=== PATIENT | female | born 1945 | race Caucasian/White ===

== ENCOUNTER 2021-06-13 12:06 | Emergency (ER) | payer MEDICARE ==
[~2021-06-13] VITALS: Ht 166.4 cm; Wt 63.6 kg
[2021-06-13 12:06] VITALS: BP 109/41
--- NOTE | 2021-06-13 13:10 | RAD ---
Site ID: [id number] EXAMINATION: XR HAND_RIGHT 3 VIEWS. HISTORY: 76 years Female Reason: fall, 4-5th metcarpal injury, fall onto walker today / COMPARISON: None. FINDINGS: There is an oblique minimally displaced fracture through the midshaft of the fifth metacarpal bone. T here is no subluxation or dislocation of the joints. There is a prominent osteoarthritis changes at t he DIP joints and at the carpometacarpal joints at the base of the thumb. There is also suggestion of generalized underlying osteopenia. IMPRESSION: Oblique minimally displaced fracture through the midshaft of the fifth metacarpal bone. Electronically signed by: Binu Dickens MD (06/13/2021 1:08 PM) [id number]
--- NOTE | 2021-06-13 13:21 | PHYS DOC ---
Past History Past Surgical History: No Surgical History Alcohol Use: None General Adult EDM: Chief Complaint: HAND PROBLEM HPI: HPI: Patient is a 76-year-old female coming in for pain to her right hand. Patient was trying to get up off her recliner and stumbled into a walker. Did not fall to the ground but hit her hand into the handle of the walker. Patient complaining of pain over right hand. Patient is right-handed. No other injuries. Review of Systems: Review of Systems: All other systems within normal limits except for as noted in the HPI Allergies: Allergies: Allergies Coded Allergies Type Severity Reaction Last Updated Verified metoclopramide Allergy Unknown 06/13/21 Yes oxybutynin Allergy Unknown 06/13/21 Yes Physical Exam: PE: Constitutional: Well developed, well nourished, no acute distress, non-toxic appearance. [] HENT: Normocephalic, atraumatic, bilateral external ears normal, nose normal. [] Eyes: PERRLA, conjunctiva normal, no discharge. [] Neck: No rigidity, supple, no stridor. [] Cardiovascular: Regular rate and rhythm, brisk cap refill [] Lungs & Thorax: Non labored symmetric respirations, no tachypnea or respiratory distress [] Abdomen: Soft, nondistended. Skin: Warm, dry, no erythema, no rash. [] Back: Unremarkable Extremities: No deformities, range of motion grossly intact, no lower extremity edema. Tenderness and swelling over mid fifth metatarsal on the dorsum of the hand. Neurovascular intact distal to injury Neurologic: Alert and oriented X 3, no focal deficits noted. [] Psychologic: Affect normal, judgement normal, mood normal. [] Current Patient Data: Vital Signs: Vital Signs Date Time Temp Pulse Resp B/P (MAP) Pulse Ox O2 Delivery O2 Flow Rate FiO2 06/13/21 12:06 98.3 69 109/41 (63) 97 Room Air EKG: EKG: [] Radiology/Procedures: Radiology/Procedures: [address] [address] IMAGING REPORT Signed PATIENT: VAUGHN AVALOS ACCOUNT: [id number] : 1945 LOCATION: ER AGE: 76 SEX: F EXAM STATUS: REG ER ORD. PHYSICIAN: BRITTNEY DONOHUE MD REASON: fall, 4-5th metcarpal injury, fall onto walker today PROCEDURE: HAND RIGHT 3V Site ID: [id number] EXAMINATION: XR HAND_RIGHT 3 VIEWS. HISTORY: 76 years Female Reason: fall, 4-5th metcarpal injury, fall onto walker today / COMPARISON: None. FINDINGS: There is an oblique minimally displaced fracture through the midshaft of the fifth metacarpal bone. There is no subluxation or dislocation of the joints. There is a prominent osteoarthritis changes at the DIP joints and at the carpometacarpal joints at the base of the thumb. There is also suggestion of generalized underlying osteopenia. IMPRESSION: Oblique minimally displaced fracture through the midshaft of the fifth metacarpal bone. Electronically signed by: Ranjit Dickens MD (06/13/2021 1:08 PM) [id number] DICTATED AND SIGNED BY: RANJIT DICKENS MD DATE: 06/13/21 1307 CC: BRITTNEY DONOHUE MD; REJI CALDERON MD ~MTH0 0 [] Heart Score: C/O Chest Pain: No Risk Factors: Risk Factors: DM, Current or recent (<one month) smoker, HTN, HLP, family history of CAD, obesity. Risk Scores: Score 0 - 3: 2.5% MACE over next 6 weeks - Discharge Home Score 4 - 6: 20.3% MACE over next 6 weeks - Admit for Clinical Observation Score 7 - 10: 72.7% MACE over next 6 weeks - Early Invasive Strategies Course & Med Decision Making: Course & Med Decision Making Pertinent Labs and Imaging studies reviewed. (See chart for details) Discussed with Dr. Farah who will follow patient in clinic [] Dragon Disclaimer: Dragon Disclaimer: This electronic medical record was generated, in whole or in part, using a voice recognition dictation system. Departure Departure: Impression: Primary Impression: Fracture of fifth metacarpal bone of right hand Disposition: HOME / SELF CARE / HOMELESS Condition: STABLE Referrals: REJI CALDERON MD (PCP) Patient Instructions: Hand Fracture, Fifth Metacarpal Additional Instructions: Call to schedule follow-up appointment with Ulisses Farah MD [facility] [address] [facility], [place] [id number] BRITTNEY DONOHUE MD Jun 13, 2021 13:21
== END 2021-06-13 14:10 | disposition home or self-care (01) ==
LOC: ER 12:06
DX: S62.326A Displaced fracture of shaft of fifth metacarpal bone, right hand, initial encounter for closed fracture (principal); W01.0XXA Fall on same level from slipping, tripping and stumbling without subsequent striking against object, initial encounter; Y93.01 Activity, walking, marching and hiking; Y92.89 Other specified places as the place of occurrence of the external cause; Y99.8 Other external cause status
CPT/HCPCS: 29125; 73130; 99283-25

== ENCOUNTER 2021-06-15 10:36 | Emergency (ER) | payer MEDICARE ==
[~2021-06-15] VITALS: Ht 162.6 cm; Wt 65.8 kg
--- NOTE | 2021-06-15 11:11 | PHYS DOC ---
Past History Past Surgical History: No Surgical History Alcohol Use: None General Adult EDM: Chief Complaint: URINARY RETENTION HPI: HPI: 76-year-old female presents with urinary retention. The patient performs intermittent urinary catheterization 5 times a day at baseline. She is right- handed and recently broke her right hand. She is unable to adequately catheter self. She is concerned about urinary retention and the potential for infection. She is amenable to Akbar catheter. She has no other complaints this time. Review of Systems: Review of Systems: Constitutional: Denies fever or chills Eyes: Denies change in visual acuity HENT: Denies nasal congestion or sore throat Respiratory: Denies cough or shortness of breath Cardiovascular: Denies chest pain or edema GI: Denies abdominal pain, nausea, vomiting, bloody stools or diarrhea : Urinary retention Musculoskeletal: Right hand fracture Integument: Denies rash Neurologic: Denies headache, focal weakness or sensory changes Endocrine: Denies polyuria or polydipsia Lymphatic: Denies swollen glands Psychiatric: Denies depression or anxiety Allergies: Allergies: Allergies Coded Allergies Type Severity Reaction Last Updated Verified metoclopramide Allergy Unknown 06/13/21 Yes oxybutynin Allergy Unknown 06/13/21 Yes Physical Exam: PE: Constitutional: Well developed, well nourished, no acute distress, non-toxic appearance. [] HENT: Normocephalic, atraumatic, bilateral external ears normal, oropharynx moist, no oral exudates, nose normal. [] Eyes: PERRLA, EOMI, conjunctiva normal, no discharge. [] Neck: Normal range of motion, no tenderness, supple, no stridor. [] Cardiovascular: Heart rate regular rhythm, no murmur [] Lungs & Thorax: Bilateral breath sounds clear to auscultation [] Abdomen: Bowel sounds normal, soft, no tenderness, no masses, no pulsatile masses. [] Skin: Warm, dry, no erythema, no rash. [] Back: No tenderness, no CVA tenderness. [] Extremities: Right hand with rigid splint and covered with Ray wrap. [] Neurologic: Alert and oriented X 3, normal motor function, normal sensory function, no focal deficits noted. [] Psychologic: Affect normal, judgement normal, mood normal. [] EKG: EKG: [] Radiology/Procedures: Radiology/Procedures: [] Heart Score: C/O Chest Pain: N/A Risk Factors: Risk Factors: DM, Current or recent (<one month) smoker, HTN, HLP, family histo ry of CAD, obesity. Risk Scores: Score 0 - 3: 2.5% MACE over next 6 weeks - Discharge Home Score 4 - 6: 20.3% MACE over next 6 weeks - Admit for Clinical Observation Score 7 - 10: 72.7% MACE over next 6 weeks - Early Invasive Strategies Course & Med Decision Making: Course & Med Decision Making Pertinent Labs and Imaging studies reviewed. (See chart for details) We will place a Akbar catheter for the patient. No other work-up is necessary at this time. She is stable for discharge. [] Dragon Disclaimer: Dragon Disclaimer: This electronic medical record was generated, in whole or in part, using a voice recognition dictation system. Departure Departure: Impression: Primary Impression: Urinary retention Disposition: HOME / SELF CARE / HOMELESS Condition: IMPROVED Referrals: REJI CALDERON MD (PCP) Patient Instructions: Akbar Catheter Care, Adult ELMIRAPILAR DO Jun 15, 2021 11:10
[2021-06-15 11:12] VITALS: BP 161/61
== END 2021-06-15 11:40 | disposition home or self-care (01) ==
LOC: ER 10:36
DX: R33.9 Retention of urine, unspecified (principal)
CPT/HCPCS: 51702; 99284-25

== ENCOUNTER 2021-08-26 12:44 | Observation (INO) | payer MEDICARE ==
[~2021-08-26] VITALS: Ht 165.1 cm; Wt 62.2 kg
--- NOTE | 2021-08-26 13:00 | PHYS DOC ---
Past History Past Surgical History: No Surgical History Alcohol Use: None General Adult EDM: Chief Complaint: MECHANICAL FALL HPI: HPI: 76-year-old female presents via EMS after 2 falls at home. Patient states that she has an undiagnosed movement disorder. Her physicians are trying to quantify it and come up with an official diagnosis. She tells me that she has mechanical falls frequently. She was seen in this emergency room recently with a fall. A fall 4 days ago led to the bruising on the right side of her face. Patient denies hitting her head today. She states she has pain in her right lateral hip. She did not try to get up after her second fall. She does not have any other specific complaints at this time. Review of Systems: Review of Systems: Constitutional: Denies fever or chills Eyes: Denies change in visual acuity HENT: Denies nasal congestion or sore throat Respiratory: Denies cough or shortness of breath Cardiovascular: Denies chest pain or edema GI: Denies abdominal pain, nausea, vomiting, bloody stools or diarrhea : Denies dysuria Musculoskeletal: Right hip pain Integument: Denies rash Neurologic: Denies headache, focal weakness or sensory changes Endocrine: Denies polyuria or polydipsia Lymphatic: Denies swollen glands Psychiatric: Denies depression or anxiety Allergies: Allergies: Allergies Coded Allergies Type Severity Reaction Last Updated Verified metoclopramide Allergy Unknown 06/13/21 Yes oxybutynin Allergy Unknown 06/13/21 Yes sulfamethoxazole Allergy Unknown 08/26/21 Yes trimethoprim Allergy Unknown 08/26/21 Yes Uncoded Allergies Type Severity Reaction Last Updated Verified CONTRAST DYE Allergy Unknown 08/26/21 Physical Exam: PE: Constitutional: Well developed, well nourished, no acute distress, non-toxic appearance. [] HENT: Normocephalic, atraumatic, bilateral external ears normal, oropharynx moist, no oral exudates, nose normal. [] Eyes: PERRLA, EOMI, conjunctiva normal, no discharge. [] Neck: Normal range of motion, no tenderness, supple, no stridor. [] Cardiovascular: Heart rate regular rhythm, no murmur [] Lungs & Thorax: Bilateral breath sounds clear to auscultation [] Abdomen: Bowel sounds normal, soft, no tenderness, no masses, no pulsatile masses. [] Skin: Warm, dry, no erythema, no rash. [] Back: No tenderness, no CVA tenderness. [] Extremities: Mild right hip tenderness, no crepitus or feeling of instability. [] Neurologic: Alert and oriented X 3, normal motor function, normal sensory function, no focal deficits noted. [] Psychologic: Affect normal, judgement normal, mood normal. [] EKG: EKG: [] Radiology/Procedures: Radiology/Procedures: [] Impressions: EXAM: XR CHEST 1V 08/26/2021 1:01 PM CLINICAL INDICATION: Fall COMPARISON: None TECHNIQUE: AP supine view of the chest FINDINGS: There are surgical changes of median sternotomy. There is lower cervical fusion hardware. Moderate hiatal hernia. The heart is at the upper limit of normal in size. Lungs are normally expanded. There is linear atelectasis or scarring in the right lung base. No consolidation, pleural effusion, or pneumothorax. No acute osseous abnormality. IMPRESSION: 1. No acute cardiopulmonary abnormality. 2. Moderate hiatal hernia. Electronically signed by: Natividad Sosa MD (08/26/2021 1:56 PM) [id number] DICTATED AND SIGNED BY: NATIVIDAD SOSA MD DATE: 08/26/21 1352 CC: PILAR KU DO; REJI CALDERON MD ~MTH0 0 XR BILATERAL HIP (WITH OR WITHOUT PELVIS) 2 VIEWS_RIGHT Clinical indications: Reason: fall /pain. Findings: There is cortical disruption of the lateral aspect of the greater trochanter of the proximal right femur. This may indicate a nondisplaced fracture here. No fracture is seen elsewhere involving the right femur or the the pelvic bones. Right hip dislocation is seen. No diastases of the symphysis pubis or either SI joint is seen. IMPRESSION: Possible nondisplaced fracture of the greater trochanter. If there is point tenderness in this area, then a CT study of the right hip may be helpful for further evaluation. Electronically signed by: Alexandre Zapata MD (08/26/2021 1:53 PM) [id number] DICTATED AND SIGNED BY: ALEXANDRE ZAPATA MD DATE: 08/26/21 1350 CC: PILAR KU DO; REJI CALDERON MD ~MTH0 0 Examination: CT pelvis without contrast HISTORY: History of right trochanteric fracture COMPARISON: None TECHNIQUE: Axial CT images of the bony pelvis were performed without contrast. Coronal and sagittal reformats are performed. Exposure: One or more of the following individualized dose reduction techniques were utilized for this examination: 1. Automated exposure control 2. Adjustment of the mA and/or kV according to patient size 3. Use of iterative reconstruction technique FINDINGS: The bilateral femoral heads within the acetabulum. Mild joint space loss bilateral hip joint likely degenerative changes. There is no acute fracture or dislocation identified. Urinary bladder is mildly distended. IMPRESSION: 1. No evidence of acute fracture. 2. Moderate degenerative changes bilateral hip joints. Electronically signed by: Jose Luis Daley MD (08/26/2021 3:00 PM) [id number] DICTATED AND SIGNED BY: JOSE LUIS DALEY MD DATE: 08/26/21 145 CC: PILAR KU DO; REJI CALDERON MD ~MTH0 0 Heart Score: C/O Chest Pain: N/A Risk Factors: Risk Factors: DM, Current or recent (<one month) smoker, HTN, HLP, family history of CAD, obesity. Risk Scores: Score 0 - 3: 2.5% MACE over next 6 weeks - Discharge Home Score 4 - 6: 20.3% MACE over next 6 weeks - Admit for Clinical Observation Score 7 - 10: 72.7% MACE over next 6 weeks - Early Invasive Strategies Course & Med Decision Making: Course & Med Decision Making Pertinent Labs and Imaging studies reviewed. (See chart for details) The patient's pelvis x-ray shows possible nondisplaced greater trochanteric fracture. CT of the pelvis shows no fracture. She does have some degenerative disease. See official read for more details. Patient's chest x-ray is negative for acute findings. Her labs are unremarkable. The patient's urinalysis is positive for infection. I will treat her with Rocephin and admit her to the hospital. I spoke with the patient's son and he is concerned that the patient is not herself. She is able to answer all of his questions but her pacing and demeanor seems off. She has had some recent psychiatric medication adjustments. I spoke with Dr. Shafer and he has accepted the patient for admission. [] Kylah Disclaimer: Kylah Disclaimer: This electronic medical record was generated, in whole or in part, using a voice recognition dictation system. Departure Departure: Impression: Primary Impression: UTI (urinary tract infection) Qualified Codes: N30.01 - Acute cystitis with hematuria Disposition: ADMITTED INPATIENT Admitting Physician: Watson Shafer Condition: STABLE Referrals: REJI CALDERON MD (PCP) PILAR KU DO Aug 26, 2021 13:00
[2021-08-26 13:49] LABS: BASO # 0.1 x10^3/uL (0.0-0.2); BASO % 1 % (0-3); EOS # 0.1 x10^3/uL (0.0-0.7); EOS % 1 % (0-3); HEMATOCRIT 32.2 % (36.0-47.0); HEMOGLOBIN 10.5 g/dL (12.0-15.5); LYMPH # 1.1 x10^3/uL (1.0-4.8); LYMPH % 13 % (24-48); MEAN CORPUSCULAR HEMOGLOBIN 32 pg (25-35); MEAN CORPUSCULAR HGB CONC 33 g/dL (31-37); MEAN CORPUSCULAR VOLUME 98 fL (79-100); MONO # 0.8 x10^3/uL (0.0-1.1); MONO % 10 % (0-9); NEUT # 6.3 x10^3uL (1.8-7.7); NEUT % 76 % (31-73); PLATELET COUNT 236 x10^3/uL (140-400); RED BLOOD COUNT 3.29 x10^6/uL (3.50-5.40); RED CELL DISTRIBUTION WIDTH 13.9 % (11.5-14.5); WHITE BLOOD COUNT 8.4 x10^3/uL (4.0-11.0)
--- NOTE | 2021-08-26 13:56 | RAD ---
XR BILATERAL HIP (WITH OR WITHOUT PELVIS) 2 VIEWS_RIGHT Clinical indications: Reason: fall /pain. Findings: There is cortical disruption of the lateral aspect of the greater trochanter of the proxim al right femur. This may indicate a nondisplaced fracture here. No fracture is seen elsewhere involvi ng the right femur or the the pelvic bones. Right hip dislocation is seen. No diastases of the symphy sis pubis or either SI joint is seen. IMPRESSION: Possible nondisplaced fracture of the greater trochanter. If there is point tenderness in this area, then a CT study of the right hip may be helpful for further evaluation. Electronically signed by: Norm Zapata MD (08/26/2021 1:53 PM) [id number]
--- NOTE | 2021-08-26 13:58 | RAD ---
EXAM: XR CHEST 1V 08/26/2021 1:01 PM CLINICAL INDICATION: Fall COMPARISON: None TECHNIQUE: AP supine view of the chest FINDINGS: There are surgical changes of median sternotomy. There is lower cervical fusion hardware. Moderate hiatal hernia. The heart is at the upper limit of normal in size. Lungs are normally expande d. There is linear atelectasis or scarring in the right lung base. No consolidation, pleural effusion , or pneumothorax. No acute osseous abnormality. IMPRESSION: 1. No acute cardiopulmonary abnormality. 2. Moderate hiatal hernia. Electronically signed by: Natividad Sosa MD (08/26/2021 1:56 PM) [id number]
[2021-08-26 14:00] LABS: CALCIUM 8.5 mg/dL (8.5-10.1); CREATININE 1.6 mg/dL (0.6-1.0); GFR 31.3; POTASSIUM 4.1 mmol/L (3.5-5.1)
[2021-08-26 14:07] LABS: ALBUMIN 3.5 g/dL (3.4-5.0); ALBUMIN/GLOBULIN RATIO 1.3 (1.0-1.7); TOTAL BILIRUBIN 0.9 mg/dL (0.2-1.0); TOTAL PROTEIN 6.2 g/dL (6.4-8.2)
[2021-08-26 14:55] LABS: BACTERIA,URINE MANY /HPF (0-FEW); BILIRUBIN,URINE NEG (NEG); CLARITY,URINE HAZY; COLOR,URINE YELLOW; GLUCOSE,URINE NEG (NEG); NITRITE,URINE NEG (NEG); RBC,URINE 0 /HPF (0-2); SQUAMOUS EPITHELIAL CELL,UR MOD /LPF; UROBILINOGEN,URINE 0.2 mg/dL (0.2 mg/dL)
--- NOTE | 2021-08-26 15:02 | RAD ---
Examination: CT pelvis without contrast HISTORY: History of right trochanteric fracture COMPARISON: None TECHNIQUE: Axial CT images of the bony pelvis were performed without contrast. Coronal and sagittal r eformats are performed. Exposure: One or more of the following individualized dose reduction techniques were utilized for thi s examination: 1. Automated exposure control 2. Adjustment of the mA and/or kV according to patient size 3. Use of iterative reconstruction technique FINDINGS: The bilateral femoral heads within the acetabulum. Mild joint space loss bilateral hip joint likely d egenerative changes. There is no acute fracture or dislocation identified. Urinary bladder is mildly distended. IMPRESSION: 1. No evidence of acute fracture. 2. Moderate degenerative changes bilateral hip joints. Electronically signed by: Jose Luis Daley MD (08/26/2021 3:00 PM) [id number]
[2021-08-26] MEDS ORDERED: cefTRIAXone SODIUM 1 GM VIAL ONE (15:39)
[2021-08-26] MEDS ORDERED: IV NORMAL SALINE 50ML 50 ML ONE (15:39)
[2021-08-26] MEDS ORDERED: ONDANSETRON PF 4 MG/2 ML VIAL. IVP PRN (16:00)
[2021-08-26 20:00] VITALS: BP 110/66
[2021-08-26] MEDS ORDERED: TRAZ-120 PO (22:58)
[2021-08-26] MEDS ORDERED: LAMO100T37 PO (22:58)
[2021-08-26] MEDS ORDERED: LAMO25TB PO (22:58)
[2021-08-26] MEDS ORDERED: LAMO25TA9 PO (22:58)
[2021-08-26] MEDS ORDERED: ATORVASTATIN CA80 MG PO (22:58)
[2021-08-26] MEDS ORDERED: ESCITALOPRAM OX20 MG PO (22:58)
[2021-08-26] MEDS ORDERED: METO-239 PO (22:58)
[2021-08-26] MEDS ORDERED: AMLO-186 PO (22:58)
[2021-08-26] MEDS ORDERED: LEVO88TA4 PO (22:58)
[2021-08-26] MEDS ORDERED: LOSA50TA86 PO (22:58)
[2021-08-26] MEDS ORDERED: BUPR300T92 PO (22:58)
[2021-08-26] MEDS ORDERED: TRIM100T13 PO (22:58)
[2021-08-26] MEDS ORDERED: PANT40TA6 PO (22:58)
[2021-08-26 23:57] VITALS: BP 108/68
--- NOTE | 2021-08-27 02:29 | NUR ---
The patient, VAUGHN AVALOS, 76 y/o, F admitted by PELON OROSCO MD, was given written information regarding hospital policies, unit procedures and contact persons. Valuables were checked and vital signs were obtained. PT states she has fallen multiple times which has been an ongoing problem with increasing frequency for 10 years. PT lives alone. PT states she fell 2 times on date of admission, once the day before and once the week before. PT noted with ecchymosis to RT face, arm, knee with erythema and edema to RT knee. PT states she self-catheterizes herself up to 5 times a day at home. PT's son lives close and daughter lives in [place]. PT spoke with daughter on phone during admission interview.
--- NOTE | 2021-08-27 03:03 | EKG ---
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
[2021-08-27 05:13] VITALS: BP 103/67
[2021-08-27] MEDS: LACTOBACILLUS RHAMNOSUS GG 1 CAPSULE. PO SCH ×2 (08:16→20:28)
[2021-08-27] MEDS: PANTOPRAZOLE 40 MG TABLET. PO SCH ×2 (08:17→20:28)
[2021-08-27] MEDS: METOPROLOL SUCC 24HR ER 25 MG TAB.ER.24H. PO SCH (08:17)
[2021-08-27] MEDS: CITALOPRAM 20 MG TABLET. PO SCH (08:17)
[2021-08-27] MEDS: lamoTRIgine 25 MG TABLET. PO SCH (08:18)
[2021-08-27] MEDS: buPROPion XL 300 MG TAB.ER.24H. PO SCH (08:19)
[2021-08-27 10:33] VITALS: BP 129/71
[2021-08-27] MEDS: IV NORMAL SALINE 1,000ML 1,000 ML IV SCH ×2 (10:41→23:07)
[2021-08-27] MEDS: LOSARTAN 50 MG TABLET. PO SCH (10:43)
[2021-08-27 14:34] VITALS: BP 100/70
--- NOTE | 2021-08-27 15:13 | HP ---
DATE OF SERVICE: 08/27/2021 ADMIT DATE: 08/26/2021 HISTORY OF PRESENT ILLNESS: The patient is a 76-year-old female patient who presented via EMS to the Emergency Room of [facility] after 2 falls at home. She stated that she had an undiagnosed movement disorder. Her physicians are trying to quantify and come up with an official diagnosis. She stated that she has mechanical falls frequently. She was seen in this Emergency Room recently with a fall, a fall 4 days ago led to the bruising on right side of her face. Denied hitting her head today. She states she has pain in her right lateral hip, she did not try to get up after her second fall. She does not have any further specific complaints at this time. She was extensively investigated in the Emergency Room and has had lab work and extensive imaging studies. Her lab work showed that she has normochromic normocytic anemia with normal white cell count and platelets. Her chemistry showed that she has also dehydrated. Urinalysis showed that the patient has small amount of leukocyte esterase, 0 rbc's, 11-20 wbc's and many bacteria. The patient was admitted with UTI and recurrent falls. PAST MEDICAL HISTORY: Significant for hypertension, hyperlipidemia, coronary artery disease, status post PCI with stent deployment as well as coronary artery bypass graft surgery, stage IV chronic kidney disease, hypothyroidism and dysphagia to both solids and liquids. PAST SURGICAL HISTORY: Significant for right rotator cuff repair, cholecystectomy, bladder surgery x3, PCI and stent deployment, coronary artery bypass graft surgery, bilateral cataract extraction and tonsillectomy, neck surgery. ALLERGIES: SHE IS ALLERGIC TO IODINATED CONTRAST MEDIA, METOCLOPRAMIDE, OXYBUTYNIN, SULFAMETHOXAZOLE, TRIMETHOPRIM. MEDICATIONS: She is currently on the following medications: She is on trimethoprim 100 mg twice a day for UTI prevention, metoprolol succinate 25 mg once a day, amlodipine besylate 5 mg once a day, losartan potassium 50 mg once a day, lamotrigine 100 mg once a day, lamotrigine 25 mg at bedtime. She is also on lamotrigine 25 mg daily and she is on Wellbutrin-XL 300 mg once a day, escitalopram oxalate 20 mg once a day, trazodone 50 mg at bedtime, Protonix 40 mg twice a day, levothyroxine sodium 88 mcg once a day, atorvastatin calcium 80 mg at bedtime. FAMILY HISTORY: She has one brother, older and still alive and lives in [place]. Two sisters, older, but both . Her father at age of 65 because of metastatic lung cancer. Mother at age of 84 because of old age. SOCIAL HISTORY: She is , has a son and a daughter. She never smoked, does not drink alcohol. 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 REVIEW OF SYSTEMS: According to her, she has been suffering from this unsteadiness for over 10 years and was seen and investigated by multiple subspecialists without any solution. PHYSICAL EXAMINATION: GENERAL: On arrival to the Emergency Room, she looked well and was clearly in no apparent respiratory distress. She was pale, not jaundiced, cyanosed or thyromegaly. No jugular venous distention. No lower limb edema. VITAL SIGNS: Her heart rate was 89, blood pressure is 131/74, temperature was 98.5, respiratory rate was 20 and oxygen saturation was 97% on room air. HEAD, EYES, EARS, NOSE, AND THROAT: Normocephalic, atraumatic. NECK: Supple. HEART: Showed normal first and second heart sounds. No gallop, rub or murmur. CHEST: Clear to auscultation, no crepitation or rhonchi. ABDOMEN: Distended, soft, nontender. NEUROLOGIC: She was awake, alert, responding appropriately. All cranial nerves intact. She moves extremities without difficulty. She ambulates with a walker. LABORATORY DATA: On arrival showed a white cell count of 8400, hemoglobin 10.5, hematocrit 32, MCV 98 and platelet count 236,000 with normal manual differential. Her chemistry showed a serum sodium 141, potassium 4.1, chloride 105, bicarbonate 20, anion gap of 16, BUN 26, creatinine 1.6. Estimated GFR was 31 mL per minute. Her glucose was 99, calcium was 8.5. Total bilirubin, AST, ALT, alkaline phosphatase were normal. Her troponin was 12, total protein 6.2, albumin was 3.5. Urinalysis showed the urine was yellow, hazy with a pH of 5.5, specific gravity of 1.030. The urine was negative for protein, glucose, ketones, blood, nitrite. The urine was positive for leukocyte esterase, 0 rbc's, 11-20 wbc's, too many bacteria. Her coronavirus by PCR was negative. She did have hip and pelvis x-ray, showed possible nondisplaced fracture of the greater trochanter, there is point tenderness in the area. Then, a CT scan of the right hip maybe helpful for further evaluation. She did have a chest x-ray, which showed no acute cardiopulmonary abnormality, moderate hiatal hernia. CT scan of the pelvis showed the bilateral femoral head within the acetabulum. Mild joint space loss bilaterally, hip joint, likely degenerative changes. There is no acute fracture or dislocation. Urinary bladder is mildly distended. ASSESSMENT AND PLAN: In summary, this is a 76-year-old female patient who was admitted with recurrent falls and was found to have urinary tract infection. The patient was continued on IV antibiotic in the form of ceftriaxone. Continue with all her medications. Continue with IV fluid. LUDWIN DR: Zaira TID: [id number]
--- NOTE | 2021-08-27 16:51 | NUR ---
Nursing note Consult to Neurology and cardiology called
[2021-08-27 18:11] VITALS: BP 100/65
[2021-08-27] MEDS ORDERED: ACETAMINOPHEN 325 MG TABLET PO PRN (19:45)
[2021-08-27] MEDS ORDERED: traZODone 50 MG TABLET. PO SCH (21:00)
[2021-08-27] MEDS ORDERED: lamoTRIgine 25 MG TABLET. PO SCH (21:00)
[2021-08-27] MEDS ORDERED: ATORVASTATIN CALCIUM 20 MG TABLET PO SCH (21:00)
[2021-08-27] MEDS ORDERED: lamoTRIgine 100 MG TABLET. PO SCH (21:00)
[2021-08-27] MEDS ORDERED: LACTOBACILLUS RHAMNOSUS GG 1 CAPSULE. PO SCH (21:00)
[2021-08-27] MEDS ORDERED: amLODIPine BESYLATE 5 MG TABLET PO SCH (21:00)
[2021-08-28 05:42] VITALS: BP 112/72
[2021-08-28] MEDS ORDERED: LEVOTHYROXINE 88 MCG TABLET PO SCH (06:00)
[2021-08-28 06:16] LABS: HEMATOCRIT 31.2 % (36.0-47.0); HEMOGLOBIN 10.2 g/dL (12.0-15.5); RED BLOOD COUNT 3.22 x10^6/uL (3.50-5.40); RED CELL DISTRIBUTION WIDTH 13.7 % (11.5-14.5); WHITE BLOOD COUNT 5.4 x10^3/uL (4.0-11.0)
[2021-08-28 06:25] LABS: ALBUMIN 2.5 g/dL (3.4-5.0); ALBUMIN/GLOBULIN RATIO 0.8 (1.0-1.7); CALCIUM 7.9 mg/dL (8.5-10.1); CREATININE 1.1 mg/dL (0.6-1.0); GFR 48.3; POTASSIUM 3.8 mmol/L (3.5-5.1); TOTAL BILIRUBIN 0.5 mg/dL (0.2-1.0); TOTAL PROTEIN 5.5 g/dL (6.4-8.2)
[2021-08-28] MEDS: PANTOPRAZOLE 40 MG TABLET. PO SCH (07:54)
[2021-08-28] MEDS: CITALOPRAM 20 MG TABLET. PO SCH (07:54)
[2021-08-28] MEDS: LOSARTAN 50 MG TABLET. PO SCH (07:55)
[2021-08-28] MEDS: lamoTRIgine 25 MG TABLET. PO SCH (07:56)
--- NOTE | 2021-08-28 07:57 | CONS ---
DATE OF CONSULTATION: 08/27/2021 NEUROLOGY CONSULTATION REFERRING PHYSICIAN: Dr. Shafer. REASON FOR CONSULTATION: Unsteady gait and frequent falls. HISTORY OF PRESENT ILLNESS: This is a 76-year-old right-handed female who was admitted through Emergency Room on 08/26/2021 on account of frequent falls and steady gait. The patient stated she fell at least two times at home, mainly when she tried to turn. The patient did fall twice in the last four days. The last fall was a few days ago when she fell forward resulted in multiple bruises area and a black right eye. She denies loss of consciousness. There was no evidence of any seizure activities. The patient denies any precipitating symptoms prior to the falls. Currently, she complains of right hip pain. In the Emergency Room, she had extensive workup including x-ray to the pelvic and hip, which revealed no fracture or dislocation. Currently, she denies chest pain, shortness of breath or palpitation, dysarthria or dysphagia. The patient usually uses a walker for ambulation. PAST MEDICAL HISTORY: Significant for coronary artery disease, hypertension, hyperlipidemia, hypothyroidism, chronic kidney disease, dysphagia to solid and liquid. PAST SURGICAL HISTORY: Positive for coronary artery bypass graft in 2001, status post PCI with stent placement x1, right rotator cuff repair, cholecystectomy, bladder surgery x3, bilateral cataract extraction and tonsillectomy, neck surgery. FAMILY HISTORY: Noncontributory; however, father at the age of 65 from lung cancer and metastasis. Mother at age of 84 of old age. SOCIAL HISTORY: The patient is . She had one daughter and son. She denies smoking, alcohol drinking or illicit drug use. CURRENT MEDICATIONS: Include levothyroxine, lamotrigine, Lipitor, trazodone, amlodipine, Tylenol, citalopram, pantoprazole, losartan, Wellbutrin XR. ALLERGIES: IODINATED CONTRAST MEDIA, OXYBUTYNIN, SULFAMETHIZOLE AND TRIMETHOPRIM. REVIEW OF SYSTEMS: A 10-point review of system was performed as mentioned above in history of present illness. PHYSICAL EXAMINATION: GENERAL: Well-developed, well-nourished female in no acute distress. She weighs 62.2 kilos. VITAL SIGNS: Blood pressure 100/65, respiratory rate 20, pulse is 99 and regular, oxygen saturation is 98.4, temperature 98.4, oxygen saturation 97%. HEENT: Normocephalic, atraumatic, otherwise unremarkable. NECK: Supple, negative for carotid bruit, lymphadenopathy or thyromegaly. LUNGS: Clear to A and P. CARDIOVASCULAR: Regular rate and rhythm, normal S1, S2. There is no S3, S4 or murmur. ABDOMEN: Soft. Bowel sounds positive. EXTREMITIES: Negative for cyanosis, clubbing or pedal edema. NEUROLOGIC: Mental status: The patient is alert and oriented x 3. Speech is clear. There is no language dysfunction. Memory, judgment and abstracting thinking are normal. The patient denies hallucination or delusion. Cranial nerves: Visual cabral are full. The pupils are reactive to light and accommodation. The extraocular movements are intact. There is no nystagmus. There is no facial motor or sensory deficits. Hearing is intact bilaterally. The palate is elevated symmetrically. Sternocleidomastoid muscles are powerful bilaterally. The patient shrugs her shoulders symmetrically, protrudes her tongue in the midline without fasciculation or atrophy. Motor exam: No focal muscle bulk wasting. The tone is normal. The strength is 4/5 throughout. Sensory examination revealed normal pinprick and light touch senses throughout. Deep tendon reflexes were symmetric and hypoactive with absent Achilles responses. Gait: The patient uses a walker for ambulation. LABORATORY DATA: CBC revealed white cells of 8.4 thousand, hemoglobin 10.5, hematocrit 32.2, platelet count 236,000. Chemistry reveals sodium 141, potassium 4.1, chloride 105, CO2 of 20, BUN 26, creatinine 1.6, glucose 99, calcium 8.5. Liver enzymes are normal except for elevated AST. Troponin level is 12. Urinalysis negative for urinary tract infections. Rapid COVID test is negative. DIAGNOSTIC DATA: Pelvis CT revealed no acute fracture, but moderate degenerative changes of bilateral hips. A chest x-ray revealed no acute cardiopulmonary process with moderate hiatal hernia. Pelvis CT revealed no acute fracture, but moderate degenerative changes, bilateral hips. Urinalysis revealed a small urinary leukocyte esterase with white blood cells of 11-20 and many bacteria consistent with urinary tract infections. IMPRESSION: 1. Frequent falls, mainly when she tried to turn using a walker. 2. Moderate encephalopathy - resolved, probably due to underlying urinary tract infections. 3. Multiple medical problems include anemia, hypertension, hyperlipidemia, gastroesophageal reflux disease, coronary artery disease. RECOMMENDATIONS: 1. Continue with current management initiated by Dr. Shafer. 2. Treat underlying urinary tract infections. 3. Physical therapy evaluation. EFREM/JOAQUINA DR: Shun TID: [id number]
[2021-08-28] MEDS: buPROPion XL 300 MG TAB.ER.24H. PO SCH (07:58)
--- NOTE | 2021-08-28 08:27 | PDOC2 ---
CARDIAC CONSULT DATE OF CONSULT DOS: DATE: 08/28/21 TIME: 08:20 REASON FOR CONSULT Reason for Consult Weakness, falls, dizziness REFERRING PHYSICIAN Referring Physician Dr. Shafer SOURCE Source: Chart review, Patient HPI History of Present Illness This is a 76 yo female who presented secondary to recurrent falls. Patient reports recurrent falls for many years. Reports "foggy" feeling in her head prior to falling. Denies any dizziness or LOC. These falls do not generally occur upon standing. She denies any chest pain, palpitations, shortness of breath, or nausea/vomiting. Does have a history of CAD s/p CABG. Follows with [facility], Dr. Merlin Peters. Reports having normal stress test and echocardiogram in November of this year. Has not had an event monitor that she recalls. UA notable for UTI PAST MEDICAL HISTORY Cardiovascular: CAD, HTN, hyperipidemia GI: GERD Psych: Depression Renal/: Chronic renal insuff, Other (urinary retention ) Endocrine: Hypothyroidism PAST SURGICAL HISTORY Past Surgical History CABG in 2001, PCI/stent, right rotator cuff repair, cholecystectomy, bladder surgery x3, bilateral cataract extraction, tonsillectomy, neck surgery FAMILY HISTORY Family History: Heart Disease, Stroke SOCIAL HISTORY Smoke: No ALCOHOL: none Drugs: None Lives: Alone CURRENT MEDICATIONS Current Medications Current Medications Ceftriaxone Sodium 1 gm/ Sodium Chloride 50 ml @ 100 mls/hr 1X ONCE IV Last administered on 08/26/21at 15:45; Start 08/26/21 at 15:30; Stop 08/26/21 at 15:59; Status DC Sodium Chloride 50 ml @ As Directed STK-MED ONCE .ROUTE ; Start 08/26/21 at 15:39; Stop 08/26/21 at 15:40; Status DC Ceftriaxone Sodium (Rocephin) 1 gm STK-MED ONCE .ROUTE ; Start 08/26/21 at 15:39; Stop 08/26/21 at 15:40; Status DC Ondansetron HCl (Zofran) 4 mg PRN Q4HRS PRN IVP NAUSEA/VOMITING; Start 08/26/21 at 16:00; Stop 08/27/21 at 15:59; Status DC Amlodipine Besylate (Norvasc) 5 mg HS PO ; Start 08/27/21 at 21:00 Bupropion HCl (Wellbutrin Xl) 300 mg DAILY PO Last administered on 08/28/21at 07:58; Start 08/27/21 at 09:00 Lamotrigine (LaMICtal) 50 mg DAILY PO Last administered on 08/28/21 07:56; Start 08/27/21 at 09:00 Levothyroxine Sodium (Synthroid) 88 mcg DAILY06 PO Last administered on 08/28/21 06:07; Start 08/28/21 at 06:00 Losartan Potassium (Cozaar) 50 mg DAILY PO Last administered on 08/28/21 07:55; Start 08/27/21 at 09:00 Metoprolol Succinate (Toprol Xl) 25 mg DAILY PO Last administered on 08/27/21 08:17; Start 08/27/21 at 09:00 Pantoprazole Sodium (Protonix) 40 mg BID PO Last administered on 08/28/21 07:54; Start 08/27/21 at 09:00 Trazodone HCl (Desyrel) 50 mg QHS PO Last administered on 08/27/21 20:27; Start 08/27/21 at 21:00 Atorvastatin Calcium (Lipitor) 80 mg QHS PO Last administered on 08/27/21 20:28; Start 08/27/21 at 21:00 Citalopram Hydrobromide (CeleXA) 40 mg DAILY PO Last administered on 08/28/21 07:54; Start 08/27/21 at 09:00 Lamotrigine (LaMICtal) 25 mg QHS PO Last administered on 08/27/21 20:28; Start 08/27/21 at 21:00 Lamotrigine (LaMICtal) 100 mg QHS PO Last administered on 08/27/21 20:28; Start 08/27/21 at 21:00 Sodium Chloride 1,000 ml @ 75 mls/hr [id number] IV Last administered on 08/27/21 23:07; Start 08/27/21 at 08:30 Ceftriaxone Sodium 1 gm/ Sodium Chloride 50 ml @ 100 mls/hr Q24H IV Last administered on 08/27/21 15:41; Start 08/27/21 at 15:30 Lactobacillus Rhamnosus (Culturelle) 1 cap BID PO Last administered on 08/27/21 20:28; Start 08/27/21 at 09:00 Lactobacillus Rhamnosus (Culturelle) 1 cap BID PO ; Start 08/27/21 at 21:00; Status Cancel Acetaminophen (Tylenol) 650 mg PRN Q6HRS PRN PO MILD PAIN / TEMP > 100.3'F Last administered on 08/27/21at 20:27; Start 08/27/21 at 19:45 Active Scripts Active Reported Pantoprazole Sodium 40 Mg Tablet.dr 40 Mg PO BID Trimethoprim 100 Mg Tablet 1 Tab PO BID Lamotrigine 25 Mg Tablet 2 Tab PO DAILY Lamotrigine 25 Mg Tb.chw.dsp 1 Tab PO HS 30 Days Lamotrigine 100 Mg Tab.er.24 1 Tab PO HS 30 Days Amlodipine Besylate 5 Mg Tablet 1 Tab PO HS Atorvastatin Calcium 80 Mg Tablet 1 Tab PO HS Trazodone Hcl 50 Mg Tablet 1 Tab PO QHS Escitalopram Oxalate 20 Mg Tablet 1 Tab PO DAILY Levothyroxine Sodium 88 Mcg Tablet 1 Tab PO DAILY06 Losartan Potassium (Losartan Potassium) 50 Mg Tablet 50 Mg PO DAILY Metoprolol Succinate ( Xl ) (Metoprolol Succinate) 25 Mg Tab.er.24h 1 Tab PO DAILY Bupropion Xl (Bupropion Hcl) 300 Mg Tab.er.24h 1 Tab PO DAILY ALLERGIES Allergies: Coded Allergies: Iodinated Contrast Media (Verified Allergy, Unknown, 08/26/21) metoclopramide (Verified Allergy, Unknown, 06/13/21) oxybutynin (Verified Allergy, Unknown, 06/13/21) sulfamethoxazole (Verified Allergy, Unknown, 08/26/21) trimethoprim (Verified Allergy, Unknown, 08/26/21) ROS Review of Systems 14 point ROS conducted with pertinent positives noted above in HPI PHYSICAL EXAM General: Alert, Oriented X3, Cooperative, No acute distress HEENT: Atraumatic, Mucous membr. moist/pink Lungs: Clear to auscultation Heart: Regular rate Abdomen: Soft, No tenderness Extremities: No edema, Normal pulses Skin: No breakdown Neuro: Normal speech, Sensation intact Psych/Mental Status: Mental status NL, Mood NL MUSCULOSKELETAL: Osteoarthritic changes both hands VITALS Vital Signs Vital Signs Date Time Temp Pulse Resp B/P (MAP) Pulse Ox O2 Delivery O2 Flow Rate FiO2 08/28/21 07:55 99 112/72 08/28/21 05:42 97.8 18 96 Room Air 08/26/21 20:00 95.0 LABS LABS Laboratory Tests Test 08/26/21 13:25 08/26/21 14:11 08/26/21 18:40 08/28/21 05:55 White Blood Count 8.4 x10^3/uL (4.0-11.0) 5.4 x10^3/uL (4.0-11.0) Red Blood Count 3.29 x10^6/uL (3.50-5.40) 3.22 x10^6/uL (3.50-5.40) Hemoglobin 10.5 g/dL (12.0-15.5) 10.2 g/dL (12.0-15.5) Hematocrit 32.2 % (36.0-47.0) 31.2 % (36.0-47.0) Mean Corpuscular Volume 98 fL (79-100) 97 fL (79-100) Mean Corpuscular Hemoglobin 32 pg (25-35) 32 pg (25-35) Mean Corpuscular Hemoglobin Concent 33 g/dL (31-37) 33 g/dL (31-37) Red Cell Distribution Width 13.9 % (11.5-14.5) 13.7 % (11.5-14.5) Platelet Count 236 x10^3/uL (140-400) 208 x10^3/uL (140-400) Neutrophils (%) (Auto) 76 % (31-73) Lymphocytes (%) (Auto) 13 % (24-48) Monocytes (%) (Auto) 10 % (0-9) Eosinophils (%) (Auto) 1 % (0-3) Basophils (%) (Auto) 1 % (0-3) Neutrophils # (Auto) 6.3 x10^3uL (1.8-7.7) Lymphocytes # (Auto) 1.1 x10^3/uL (1.0-4.8) Monocytes # (Auto) 0.8 x10^3/uL (0.0-1.1) Eosinophils # (Auto) 0.1 x10^3/uL (0.0-0.7) Basophils # (Auto) 0.1 x10^3/uL (0.0-0.2) Sodium Level 141 mmol/L (136-145) 146 mmol/L (136-145) Potassium Level 4.1 mmol/L (3.5-5.1) 3.8 mmol/L (3.5-5.1) Chloride Level 105 mmol/L (98-107) 113 mmol/L (98-107) Carbon Dioxide Level 20 mmol/L (21-32) 24 mmol/L (21-32) Anion Gap 16 (6-14) 9 (6-14) Blood Urea Nitrogen 26 mg/dL (7-20) 12 mg/dL (7-20) Creatinine 1.6 mg/dL (0.6-1.0) 1.1 mg/dL (0.6-1.0) Estimated GFR (Cockcroft-Gault) 31.3 48.3 BUN/Creatinine Ratio 16 (6-20) 11 (6-20) Glucose Level 99 mg/dL (70-99) 88 mg/dL (70-99) Calcium Level 8.5 mg/dL (8.5-10.1) 7.9 mg/dL (8.5-10.1) Total Bilirubin 0.9 mg/dL (0.2-1.0) 0.5 mg/dL (0.2-1.0) Aspartate Amino Transf (AST/SGOT) 51 U/L (15-37) 38 U/L (15-37) Alanine Aminotransferase (ALT/SGPT) 43 U/L (14-59) 34 U/L (14-59) Alkaline Phosphatase 94 U/L (46-116) 80 U/L (46-116) Troponin I High Sensitivity 12 ng/L (4-50) Total Protein 6.2 g/dL (6.4-8.2) 5.5 g/dL (6.4-8.2) Albumin 3.5 g/dL (3.4-5.0) 2.5 g/dL (3.4-5.0) Albumin/Globulin Ratio 1.3 (1.0-1.7) 0.8 (1.0-1.7) Urine Collection Type Clean catch Urine Color Yellow Urine Clarity Hazy Urine pH 5.5 Urine Specific [place] >=1.030 Urine Protein Neg (NEG-TRACE) Urine Glucose (UA) Neg mg/dL (NEG) Urine Ketones (Stick) Neg mg/dL (NEG) Urine Blood Neg (NEG) Urine Nitrite Neg (NEG) Urine Bilirubin Neg (NEG) Urine Urobilinogen Dipstick 0.2 mg/dL (0.2 mg/dL) Urine Leukocyte Esterase Small (NEG) Urine RBC 0 /HPF (0-2) Urine WBC 11-20 /HPF (0-4) Urine Squamous Epithelial Cells Mod /LPF Urine Bacteria Many /HPF (0-FEW) Coronavirus (COVID-19)(PCR) Not detected (NOT DETECTD) SARS-CoV-2 Antigen (Rapid) Negative (NEGATIVE) ASSESSMENT/PLAN Assessment/Plan 1. Weakness, gait instability, recurrent falls 2. CAD s/p CABG 2001. Previously followed with [facility], Dr. Peters. Recently moved to [place] and is to establish care with silk screen etcher through [facility]. Reports normal stress and echo in November of this year. 3. Hypertension; low end 4. Hyperlipidemia 5. AMELIE on CKD; improved s/p IVFs 6. Hypothyroidism 7. UTI; as per IM Recommendations Check orthos Encouraged adequate hydration Secondary prevention Outpatient event monitor. Patient would like this conducted through [facility] GARTH BYRD APRN Aug 28, 2021 08:27
--- NOTE | 2021-08-28 08:54 | DS ---
DATE OF DISCHARGE: 08/28/2021 ATTENDING PHYSICIANS: Dr. Shafer and Dr. Morales. FINAL DISCHARGE DIAGNOSES: 1. Fall at home without any long bone injury. 2. Urinary tract infection. 3. Essential hypertension. 4. Chronic urinary tract infection. 5. Gastroesophageal reflux disease. 6. Hypothyroidism, on replacement. 7. Hyperlipidemia. 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 She recently moved here from [place] to be closer to her son. She does not drive. She has had a history of undiagnosed movement disorder resulting multiple falls. This has been ongoing for 10 years. She has not had a definitive diagnosis. She had another fall. No loss of consciousness. She has a urinary tract infection and was started on antibiotics. PHYSICAL EXAMINATION: Please see the dictated note. PERTINENT LABORATORY AND X-RAY STUDIES: The coronavirus studies were negative. Hemoglobin was maintained at 10.2 g/dL with a white count of 8400. Electrolytes within normal range. Sodium 141, creatinine is 1.6; repeated it was down to 1.1 mg/dL; BUN went down from 26 down to 12 mg/dL; potassium is maintained at 4.1 mEq. Cardiac enzymes negative for coronary ischemia. Liver panel, transaminases are all normal. COURSE IN THE HOSPITAL: The patient was admitted. Some home meds were continued. She was started on gentle IV hydration. She was mildly dehydrated. She also received intravenous antibiotics. Cultures are still pending at this time. They probably would not grow anything because of chronic suppression by the trimethoprim. She was doing much better by the third hospital day. She was much improved. She wanted to go home. I felt this was reasonable. I recommended 6 more days of cephalexin 500 mg p.o. t.i.d. For now, I suggested she stop the trimethoprim. In addition, regarding her home meds, she should continue her amlodipine, Lipitor, BuSpar, Lexapro, Lamictal, Synthroid, losartan, metoprolol, Protonix and trazodone, doses unchanged. She will follow up with her PCP, Dr. Calderon, as scheduled. The patient was then discharged from our hospital in stable condition with explicit drug and followup care. TETE/CHILO DR: Gilberto TID: [id number] CC: REJI CALDERON MD
[2021-08-28 09:00] VITALS: BP 112/72
[2021-08-28] MEDS: METOPROLOL SUCC 24HR ER 25 MG TAB.ER.24H. PO SCH (09:00)
[2021-08-28] MEDS: LACTOBACILLUS RHAMNOSUS GG 1 CAPSULE. PO SCH (09:00)
--- NOTE | 2021-08-28 11:29 | NUR ---
Discharge note Pt discharged at 1058 via wheel chair accompained by family member pt given written and verbal instructions with verbal statement of understanding received.
--- NOTE | 2021-08-28 13:44 | PN ---
SUBJECTIVE: The patient denies any new medical or neurological complaints. She states she feels better and she is able to stand and walk to bathroom by herself. She denies dizziness, headaches, nausea, vomiting, chest pain, shortness of breath or palpitation, dysarthria or dysphagia. OBJECTIVE: GENERAL: Well-developed, well-nourished female, in no acute distress. VITAL SIGNS: Blood pressure 112/72, respiratory rate 18, pulse is 99 and regular, oxygen saturation is 96% on room air. HEENT: Normocephalic, but the patient had multiple bruises over the face and on the right lower extremity secondary to recent falls. NECK: Supple, negative for carotid bruit, lymphadenopathy or thyromegaly. LUNGS: Clear to A and P. CARDIOVASCULAR: Regular rate and rhythm, normal S1, S2. There is no S3, S4, or murmur. ABDOMEN: Soft. Bowel sounds positive. EXTREMITIES: Negative for cyanosis, clubbing or pedal edema, but positive for multiple bruises secondary to fall. NEUROLOGIC: Mental status: The patient is alert and oriented x3. The speech is fluent. There is no language dysfunction. Memory, judgment and abstracting thinking are normal. The patient denies hallucination or delusion. Cranial nerves are grossly intact. Motor exam: No focal muscle bulk wasting. The tone is normal. The strength is 4/5 throughout. Sensory examination revealed a normal pinprick and light touch senses throughout. Deep tendon reflexes were symmetric and hypoactive with absent Achilles responses. Gait: The stance is more steady. The patient walked a few steps in the room without assistance. LABORATORY DATA: CBC revealed blood cells of 5.4 thousand, hemoglobin 10.2, hematocrit 31.2, platelet count 206,000. Chemistry revealed sodium 146, potassium 3.8, chloride 113, CO2 of 24, BUN 12, creatinine 1.1, glucose 88. IMPRESSION: 1. Acute encephalopathy -- resolved. 2. Urinary tract infection may have contributed to #1. 3. Frequent falls when she is turning while using a walker. RECOMMENDATIONS: 1. Continue with current management initiated by Dr. Shafer/Dr. Morales. 2. Treat the underlying urinary tract infections. 3. Physical therapy. EFREM/HERBERTH DR: EFREM/lamar TID: [id number]
== END 2021-08-28 11:30 | disposition home or self-care (01) ==
LOC: ER 12:44 → INTOOBSV 15:46 → 1 SOUTH 15:46
PROVIDERS: ADMIT Internal Medicine; ATTEND Internal Medicine
DX: N39.0 Urinary tract infection, site not specified (principal); Z20.822 Contact with and (suspected) exposure to COVID-19; D64.9 Anemia, unspecified; I12.9 Hypertensive chronic kidney disease with stage 1 through stage 4 chronic kidney disease, or unspecified chronic kidney disease; N18.4 Chronic kidney disease, stage 4 (severe); N17.9 Acute kidney failure, unspecified; I25.10 Atherosclerotic heart disease of native coronary artery without angina pectoris; K21.9 Gastro-esophageal reflux disease without esophagitis; E03.9 Hypothyroidism, unspecified; E78.5 Hyperlipidemia, unspecified; E86.0 Dehydration; G93.40 Encephalopathy, unspecified; K44.9 Diaphragmatic hernia without obstruction or gangrene; R53.1 Weakness; R29.6 Repeated falls; Z95.1 Presence of aortocoronary bypass graft; Z95.5 Presence of coronary angioplasty implant and graft; Z98.41 Cataract extraction status, right eye; Z98.42 Cataract extraction status, left eye; W18.30XA Fall on same level, unspecified, initial encounter; Y92.009 Unspecified place in unspecified non-institutional (private) residence as the place of occurrence of the external cause
CPT/HCPCS: 36415; 51702; 71045; 72192; 73502; 80053; 81001; 84484; 85025; 85027; 87077; 87086; 87186; 87426; 93005; 96361; 96365; 96366; 97161; 97165; 97530; 97535; 99285; G0378; J0696; J7030; U0003; G0379

== ENCOUNTER 2021-09-02 10:51 | Observation (INO) | payer MEDICARE ==
[~2021-09-02] VITALS: Ht 165.1 cm; Wt 62.8 kg
[~2021-09-02 10:51] MED LIST: AMLO-186 PO; ATORVASTATIN CA80 MG PO; BUPR300T92 PO; ESCITALOPRAM OX20 MG PO; LAMO100T37 PO; LAMO25TA9 PO; LAMO25TB PO; LEVO88TA4 PO; LOSA50TA86 PO; METO-239 PO; PANT40TA6 PO; TRAZ-120 PO; TRIM100T13 PO
--- NOTE | 2021-09-02 11:31 | PHYS DOC ---
Past History Past Medical History: Hypertension, UTI Additional Past Medical Histor: frequent falls (KERI WARNER APRN) Past Surgical History: No Surgical History (KERI WARNER APRN) Alcohol Use: None (KERI WARNER APRN) General Adult EDM: Chief Complaint: MECHANICAL FALL HPI: HPI: Patient is a 76-year-old female that presents today via [facility] after a fall at the doctor's office. Patient states that she has fallen 3 times today to at home and once at the doctor's office. Patient states that she does have a history of frequent falls, due to an undiagnosed movement disorder, she does have a walker, and has been using that but today she fell twice at home before getting on the senior bus to go to her doctor's appointment at which time she fell in the cylinder block hole reliner area. Patient is been here in the emergency department at least 3 times in the past month due to frequent falls that she was admitted earlier in the month and it was recommended that she go to a long term facility for for safety reasons. Patient does have a life alert button that she does have on her. Patient does have some old bruising to the right side of her face, after reviewing her medical record she does have an old hip fracture as well. (KERI WARNER APRN) Review of Systems: Review of Systems: Constitutional: Denies fever or chills Eyes: Denies change in visual acuity HENT: Head pain Respiratory: Denies cough or shortness of breath Cardiovascular: Denies chest pain or edema GI: Denies abdominal pain, nausea, vomiting, bloody stools or diarrhea : Denies dysuria Musculoskeletal: Denies back pain or joint pain Integument: Denies rash Neurologic: Denies headache, focal weakness or sensory changes Endocrine: Denies polyuria or polydipsia Lymphatic: Denies swollen glands Psychiatric: Denies depression or anxiety (KERI WARNER APRN) Allergies: Allergies: Allergies Coded Allergies Type Severity Reaction Last Updated Verified Iodinated Contrast Media Allergy Unknown 08/26/21 Yes metoclopramide Allergy Unknown 06/13/21 Yes oxybutynin Allergy Unknown 06/13/21 Yes sulfamethoxazole Allergy Unknown 08/26/21 Yes trimethoprim Allergy Unknown 08/26/21 Yes (KERI WARNER APRN) Physical Exam: PE: Constitutional: Well developed, well nourished, no acute distress, non-toxic appearance. [] HENT: Normocephalic, atraumatic, bilateral external ears normal, oropharynx moist, no oral exudates, nose normal, ecchymotic area to the right cheek area that appears to be healing Eyes: PERRLA, EOMI, conjunctiva normal, no discharge. [] Neck: Normal range of motion, no tenderness, supple, no stridor, no midline tenderness [] Cardiovascular:Heart rate regular rhythm, no murmur [] Lungs & Thorax: Bilateral breath sounds clear to auscultation [] Abdomen: Bowel sounds normal, soft, no tenderness, no masses, no pulsatile masses. [] Skin: Warm, dry, no erythema, no rash. [] Back: No tenderness, no CVA tenderness. [] Extremities: No tenderness, no cyanosis, no clubbing, ROM intact, no edema. [] Neurologic: Alert and oriented X 3, normal motor function, normal sensory function, no focal deficits noted. [] Psychologic: Affect normal, judgement normal, mood normal. [] (KERI WARNER APRN) Current Patient Data: Labs: Laboratory Tests Test 09/02/21 11:40 09/02/21 12:17 09/02/21 13:30 Sodium Level 141 mmol/L Potassium Level 4.7 mmol/L Chloride Level 105 mmol/L Carbon Dioxide Level 25 mmol/L Anion Gap 11 Blood Urea Nitrogen 21 mg/dL Creatinine 1.4 mg/dL Estimated GFR (Cockcroft-Gault) 36.6 BUN/Creatinine Ratio 15 Glucose Level 107 mg/dL Calcium Level 9.2 mg/dL Total Bilirubin 0.7 mg/dL Aspartate Amino Transf (AST/SGOT) 40 U/L Alanine Aminotransferase (ALT/SGPT) 48 U/L Alkaline Phosphatase 99 U/L Total Protein 7.0 g/dL Albumin 3.7 g/dL Albumin/Globulin Ratio 1.1 White Blood Count 8.6 x10^3/uL Red Blood Count 3.61 x10^6/uL Hemoglobin 11.4 g/dL Hematocrit 34.8 % Mean Corpuscular Volume 97 fL Mean Corpuscular Hemoglobin 32 pg Mean Corpuscular Hemoglobin Concent 33 g/dL Red Cell Distribution Width 13.8 % Platelet Count 284 x10^3/uL Neutrophils (%) (Auto) 74 % Lymphocytes (%) (Auto) 16 % Monocytes (%) (Auto) 7 % Eosinophils (%) (Auto) 1 % Basophils (%) (Auto) 2 % Neutrophils # (Auto) 6.4 x10^3uL Lymphocytes # (Auto) 1.4 x10^3/uL Monocytes # (Auto) 0.6 x10^3/uL Eosinophils # (Auto) 0.1 x10^3/uL Basophils # (Auto) 0.1 x10^3/uL Urine Collection Type U cath Urine Color Yellow Urine Clarity Clear Urine pH 5.5 Urine Specific [place] 1.020 Urine Protein Neg Urine Glucose (UA) Neg mg/dL Urine Ketones (Stick) Neg mg/dL Urine Blood Neg Urine Nitrite Neg Urine Bilirubin Neg Urine Urobilinogen Dipstick 0.2 mg/dL Urine Leukocyte Esterase Trace Urine RBC 0 /HPF Urine WBC 11-20 /HPF Urine Squamous Epithelial Cells Few /LPF Urine Bacteria Few /HPF Vital Signs: Vital Signs Date Time Temp Pulse Resp B/P (MAP) Pulse Ox O2 Delivery O2 Flow Rate FiO2 09/02/21 11:03 97.5 80 16 126/89 (101) 100 Room Air Vital Signs Date Time Temp Pulse Resp B/P (MAP) Pulse Ox O2 Delivery O2 Flow Rate FiO2 09/02/21 11:03 97.5 80 16 126/89 (101) 100 Room Air (KERI WARNER APRN) EKG: EKG: [] (KERI WARNER APRN) Radiology/Procedures: Radiology/Procedures: [REASON: FALL W/ POSTERIOR HEAD PAIN, FELL 3 TIMES TODAY PROCEDURE: CT HEAD AND CERVICAL SPINE WO CT HEAD AND C-SPINE WO Date: 09/02/2021 11:18 AM Clinical Indication: Reason: FALL W/ POSTERIOR HEAD PAIN, FELL 3 TIMES TODAY / Spl. Instructions: / History: Comparison: None. Technique: 5 mm axial tomographic images were obtained of the head without contrast. These were viewed on brain and bone windows. Noncontrast CT of the cervical spine was performed. Sagittal and coronal reformats were performed and evaluated. One or more of the following dose reduction techniques were utilized: Automated exposure control (AEC), Adjustment of mA and/or kV according to patient size, Use of iterative reconstruction technique such as ASiR, CT scan done according to ALARA and image gently/image wisely HEAD FINDINGS: Moderate generalized cerebral and cerebellar volume loss. Remote lacunar infarct in the right basal ganglia. Moderate nonspecific periventricular hypoattenuation, most commonly seen with chronic small vessel ischemic disease. No intra- or extra-axial mass or fluid collection. No acute hemorrhage. The ventricles are normal in size, shape, and morphology. The joshi-white matter junction is normal. The basilar cisterns are patent. The visualized paranasal sinuses are normal. The visualized portions of the orbits and globes are normal. The mastoid air cells are clear. No aggressive osseous lesion or fracture. There is a 3.6 cm left posterior subgaleal hematoma CERVICAL SPINE FINDINGS: The cervical spine is normally aligned. No acute fracture. No aggressive lytic or blastic osseous lesions. C4-C6 ACDF with intervertebral fusion. Multilevel mild to moderate spinal canal stenosis secondary to disc protrusions and marginal osteophytes. Multilevel moderate to severe neuroforaminal narrowing secondary to uncovertebral arthrosis. Multilevel moderate to severe facet arthrosis. The thyroid gland is normal. No cervical lymphadenopathy. Bilateral carotid atherosclerosis. The visualized aerodigestive tract is normal. Calcified granuloma in the left upper lobe. Mild biapical pleural scarring. IMPRESSION: 1. No acute intracranial process. Brain MRI is more sensitive to detect acute intercranial process. 2. Small left posterior subgaleal hematoma. No displaced underlying calvarial fracture. 3. No acute cervical spine fracture. 4. Moderate cerebral volume loss. Moderate chronic small vessel ischemic disease. 5. Moderate to severe degenerative cervical spondylosis. Electronically signed by: Anthony Roper DO (09/02/2021 11:44 AM) [facility] ] (KERI WARNER APRN) Heart Score: C/O Chest Pain: N/A Risk Factors: Risk Factors: DM, Current or recent (<one month) smoker, HTN, HLP, family history of CAD, obesity. Risk Scores: Score 0 - 3: 2.5% MACE over next 6 weeks - Discharge Home Score 4 - 6: 20.3% MACE over next 6 weeks - Admit for Clinical Observation Score 7 - 10: 72.7% MACE over next 6 weeks - Early Invasive Strategies (KERI WARNER APRN) Course & Med Decision Making: Course & Med Decision Making Pertinent Labs and Imaging studies reviewed. (See chart for details) 1315 spoke to about admitting patient, he is agreeable for admission for frequent falls and patient safety. Will await UA results, patient self caths on a daily basis (KERI WARNER APRN) Dragon Disclaimer: Dragon Disclaimer: This electronic medical record was generated, in whole or in part, using a voice recognition dictation system. (KERI WARNER APRN) Attending Co-Sign The patient was seen and interviewed as well as examined at the bedside. The chart was reviewed. The case was discussed. Agree with the plan of care. (PILAR KU DO) Departure Departure: Impression: Primary Impression: Failure to thrive in adult Additional Impressions: Frequent falls UTI (urinary tract infection) Qualified Codes: T83.511A - Infection and inflammatory reaction due to indwelling urethral catheter, initial encounter; N39.0 - Urinary tract infection, site not specified Disposition: ADMITTED INPATIENT Admitting Physician: Mitch Morales (KERI WARNER APRN) Condition: STABLE Referrals: REJI CALDERON MD (PCP) KERI WARNER APRN Sep 02, 2021 11:30 PILAR KU DO Sep 06, 2021 06:40
--- NOTE | 2021-09-02 11:46 | RAD ---
CT HEAD AND C-SPINE WO Date: 09/02/2021 11:18 AM Clinical Indication: Reason: FALL W/ POSTERIOR HEAD PAIN, FELL 3 TIMES TODAY / Spl. Instructions: / History: Comparison: None. Technique: 5 mm axial tomographic images were obtained of the head without contrast. These were view ed on brain and bone windows. Noncontrast CT of the cervical spine was performed. Sagittal and gomez l reformats were performed and evaluated. One or more of the following dose reduction techniques were utilized: Automated exposure control (AEC), Adjustment of mA and/or kV according to patient size, Us e of iterative reconstruction technique such as ASiR, CT scan done according to ALARA and image gentl y/image wisely HEAD FINDINGS: Moderate generalized cerebral and cerebellar volume loss. Remote lacunar infarct in the right basal g anglia. Moderate nonspecific periventricular hypoattenuation, most commonly seen with chronic small v essel ischemic disease. No intra- or extra-axial mass or fluid collection. No acute hemorrhage. The ventricles are normal in size, shape, and morphology. The joshi-white matter junction is normal. The basilar cisterns are paten t. The visualized paranasal sinuses are normal. The visualized portions of the orbits and globes are no rmal. The mastoid air cells are clear. No aggressive osseous lesion or fracture. There is a 3.6 cm le ft posterior subgaleal hematoma CERVICAL SPINE FINDINGS: The cervical spine is normally aligned. No acute fracture. No aggressive lytic or blastic osseous les ions. C4-C6 ACDF with intervertebral fusion. Multilevel mild to moderate spinal canal stenosis secondary to disc protrusions and marginal osteophy vasyl. Multilevel moderate to severe neuroforaminal narrowing secondary to uncovertebral arthrosis. Mul tilevel moderate to severe facet arthrosis. The thyroid gland is normal. No cervical lymphadenopathy. Bilateral carotid atherosclerosis. The visu alized aerodigestive tract is normal. Calcified granuloma in the left upper lobe. Mild biapical pleural scarring. IMPRESSION: 1. No acute intracranial process. Brain MRI is more sensitive to detect acute intercranial process. 2. Small left posterior subgaleal hematoma. No displaced underlying calvarial fracture. 3. No acute cervical spine fracture. 4. Moderate cerebral volume loss. Moderate chronic small vessel ischemic disease. 5. Moderate to severe degenerative cervical spondylosis. Electronically signed by: Anthony Roper DO (09/02/2021 11:44 AM) [facility]ReidNORTHERN REG[facility]AL HOSPITALJef
[2021-09-02 12:20] LABS: CALCIUM 9.2 mg/dL (8.5-10.1); CREATININE 1.4 mg/dL (0.6-1.0); GFR 36.6; POTASSIUM 4.7 mmol/L (3.5-5.1)
[2021-09-02 12:25] LABS: ALBUMIN 3.7 g/dL (3.4-5.0); ALBUMIN/GLOBULIN RATIO 1.1 (1.0-1.7); TOTAL BILIRUBIN 0.7 mg/dL (0.2-1.0)
[2021-09-02 12:38] LABS: BASO # 0.1 x10^3/uL (0.0-0.2); BASO % 2 % (0-3); EOS # 0.1 x10^3/uL (0.0-0.7); EOS % 1 % (0-3); HEMATOCRIT 34.8 % (36.0-47.0); HEMOGLOBIN 11.4 g/dL (12.0-15.5); LYMPH # 1.4 x10^3/uL (1.0-4.8); LYMPH % 16 % (24-48); MEAN CORPUSCULAR HEMOGLOBIN 32 pg (25-35); MEAN CORPUSCULAR HGB CONC 33 g/dL (31-37); MEAN CORPUSCULAR VOLUME 97 fL (79-100); MONO # 0.6 x10^3/uL (0.0-1.1); MONO % 7 % (0-9); NEUT # 6.4 x10^3uL (1.8-7.7); NEUT % 74 % (31-73); PLATELET COUNT 284 x10^3/uL (140-400); RED BLOOD COUNT 3.61 x10^6/uL (3.50-5.40); RED CELL DISTRIBUTION WIDTH 13.8 % (11.5-14.5); WHITE BLOOD COUNT 8.6 x10^3/uL (4.0-11.0)
[2021-09-02 13:55] LABS: BILIRUBIN,URINE NEG (NEG); CLARITY,URINE CLEAR; COLOR,URINE YELLOW; GLUCOSE,URINE NEG (NEG)
[2021-09-02 13:56] LABS: BACTERIA,URINE FEW /HPF (0-FEW); NITRITE,URINE NEG (NEG); RBC,URINE 0 /HPF (0-2); SQUAMOUS EPITHELIAL CELL,UR FEW /LPF; UROBILINOGEN,URINE 0.2 mg/dL (0.2 mg/dL)
[2021-09-02] MEDS ORDERED: IV NORMAL SALINE 50ML 50 ML ONE (15:30)
[2021-09-02] MEDS ORDERED: cefTRIAXone SODIUM 1 GM VIAL ONE (15:30)
--- NOTE | 2021-09-02 19:23 | HP ---
DATE OF SERVICE: 09/02/2021 ADMIT DATE: 09/02/2021 ATTENDING PHYSICIAN: Dr. Morales CHIEF COMPLAINT: Frequent falls. HISTORY OF PRESENT ILLNESS: The patient is a 76-year-old female we just had in the hospital last week. She was discharged home on 08/28/2021. She was getting ready to see her doctor, Dr. Sandy Calderon, for followup. She had another fall, likely no long bone fractures identified. She has had frequent falls and this undiagnosed movement disorder, resulting in multiple falls. She has reached the point in her life where she cannot take care of herself. She moved here recently from [place] to be closer to her son. She was sent over by Dr. Calderon with the anticipation of admitting her and getting Physical Therapy involved and getting placement at a higher level of care. PAST MEDICAL HISTORY: Significant for the frequent falls. She had an admission for UTI last week. She has essential hypertension, chronic UTIs, gastroesophageal reflux disease, hypothyroidism, on replacement and hyperlipidemia. ALLERGIES: SHE HAS SEVERAL ALLERGIES INCLUDING IODINATED CONTRAST MEDICATIONS, METOCLOPRAMIDE, OXYBUTYNIN, SULFA AND TRIMETHOPRIM. DISCHARGE MEDICATIONS: As follows: She was finishing 6 days of cephalexin 500 t.i.d. She has amlodipine, Lipitor, BuSpar, Lexapro, Lamictal, Synthroid, losartan, metoprolol, Protonix, and trazodone. SOCIAL HISTORY: She is a nonsmoker, nondrinker. She is retired. FAMILY HISTORY: Noncontributory. REVIEW OF SYSTEMS: Significant for the frequent falls. No COVID exposure. Appetite has been fair. She is fairly alert. All other systems reviewed and determined to be negative. PHYSICAL EXAMINATION: GENERAL: When I saw her this admission, this is a fairly alert, elderly female. VITAL SIGNS: Initial vital signs showed that she was afebrile. Her blood pressure was 126/89 mmHg, her pulse was 80 and regular. She was afebrile and her oxygen saturation was 100% on room air. HEENT: Head is without trauma. Pupils are reactive. Sclerae nonicteric. The oropharynx is clear. NECK: Supple. No bruits identified. LUNGS: Otherwise, clear to auscultation. CARDIOVASCULAR: Showed regular heart tones. ABDOMEN: Soft. EXTREMITIES: Without edema. NEUROLOGIC: Focally intact. Speech is fluent. PERTINENT LABORATORY AND X-RAY STUDIES: The cervical spine films are unremarkable. She has previous C4-C6 ACDF intervertebral fusion. There is no acute intracranial process. There is a small left posterior subgaleal hematoma, no displaced underlying calvarial fractures, no C-spine fracture, [id number] degenerative cervical spondylosis. Her hemoglobin was 11.4 g/dL with a white count of 8600. Electrolytes, BUN and creatinine within normal range. Creatinine is 1.4 mg/dL. Transaminase is normal. Nonfasting blood sugar 107. ASSESSMENT: 1. A 76-year-old female with frequent falls. Diagnosis is still elusive at this time. She has had this for a decade now. 2. Inability for her to care for herself because of her falls. 3. No obvious long bone fractures. 4. Small scalp hematoma. 5. Frequent urinary tract infections. 6. Essential hypertension. PLAN: 1. Admit to the inpatient unit. 2. Physical Therapy to see the patient again. 3. We shall try to get her placed for higher level of care at discharge. TORRES DR: Gilberto TID: [id number] CC: SANDY CALDERON MD
--- NOTE | 2021-09-02 20:11 | NUR ---
ADMISSION: The patient, VAUGHN AVALOS, 76 y/o, F admitted by ROGELIO ZHAO MD, was given written information regarding hospital policies, unit procedures and contact persons. Pt arrived to room via gurney, accompanied by [facility] and nursing sup. Pt here for observation status pending placement at [facility] tomorrow. Case management consulted. Pt was here on 08/26/21 for treatment of UTI and DC'd home on 08/28 with PO ABT. Pt still weak, reportedly fell 3x today. Unable to return home alone. Pt A/Ox3 with intermittent confusion which is her baseline per son. Discussed POC, V/U. Pt requesting Tylenol for c/o posterior PEARSON. Discussed POC, V/U. Call light in reach. Valuables were checked and logged. Left in room with pt.
[2021-09-02 20:26] VITALS: BP 123/69
[2021-09-02] MEDS ORDERED: ACETAMINOPHEN 500 MG TABLET PO PRN (21:00)
[2021-09-02 23:00] VITALS: BP 108/68
[2021-09-03] MEDS ORDERED: TRIH2TAB3 PO (03:34)
[2021-09-03] MEDS ORDERED: TRAM50TA PO (03:34)
[2021-09-03] MEDS ORDERED: ASPI-889 PO (03:34)
[2021-09-03] MEDS ORDERED: LORA10TA68 PO (03:34)
[2021-09-03] MEDS ORDERED: MELA10TA PO (03:34)
[2021-09-03 05:00] VITALS: BP 93/59
--- NOTE | 2021-09-03 10:07 | NUR ---
[facility] [place] BY [facility]. PT IV DISCONTINUED. PAPERWORK GIVEN TO MAIL DISTRIBUTION SCHEME EXAMINER. PT LEFT WITH ALL OF HER BELONGINGS AND AMBULATED TO THE VAN FROM ROOM.
--- NOTE | 2021-09-03 12:38 | DS ---
DATE OF DISCHARGE: 09/03/2021 ATTENDING PHYSICIAN: Dr. Mitch Morales. FINAL DISCHARGE DIAGNOSES: 1. Frequent falls. 2. Idiopathic gait disturbance. 3. Inability for her to care for self. 4. No obvious long bone fractures identified. 5. Small scalp hematoma. 6. Frequent urinary tract infections, treated. 7. Essential hypertension. HISTORY AND PHYSICAL: The patient is a 76-year-old female gentleman well known to us, I just discharged her from the hospital 5 days ago with a UTI. She is still having frequent falls. 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 Numerous workup have not elicited any underlying diagnosis, but she has reached the point she is unable to care for herself. She fell at her doctor, Dr. Sandy Calderon's office. She was sent here for admission and placement. PHYSICAL EXAMINATION: Please see the dictated note. PERTINENT LABORATORY AND IMAGING STUDIES: CT of the head and plain films showed no acute fracture. Hemoglobin 11.4 g/dL, white count 8600. Electrolytes, BUN and creatinine ;fairly within range. Nonfasting blood sugar 107. Serology is negative for the coronavirus. Urinalysis was clear. COURSE IN THE HOSPITAL: The patient was admitted overnight. We continued her home meds without any changes. Arrangements were then made for the patient to go to [facility] facility. This is what her insurance [facility] will pay for. Her discharge meds are unchanged from admission and the last discharge a week ago. She will continue her amlodipine, aspirin, Lipitor, BuSpar, Lexapro, Lamictal, Synthroid, loratadine, losartan, melatonin, metoprolol, Protonix, tramadol p.r.n., and trazodone doses unchanged. She remains a FULL CODE. Her prognosis is fair. She was discharged from our hospital in stable condition with explicit drug and followup care. TETE/TAB DR: TETE/lamar TID: [id number] CC: SANDY CALDERON MD
== END 2021-09-03 10:08 ==
LOC: ER 10:51 → INTOOBSV 19:08 → 1 SOUTH 19:08
PROVIDERS: ADMIT Hospitalist; ATTEND Hospitalist
DX: R26.89 Other abnormalities of gait and mobility (principal); Z20.822 Contact with and (suspected) exposure to COVID-19; S00.03XA Contusion of scalp, initial encounter; R62.7 Adult failure to thrive; R29.6 Repeated falls; I10 Essential (primary) hypertension; E03.9 Hypothyroidism, unspecified; T83.511A Infection and inflammatory reaction due to indwelling urethral catheter, initial encounter; E78.5 Hyperlipidemia, unspecified; M47.812 Spondylosis without myelopathy or radiculopathy, cervical region; N39.0 Urinary tract infection, site not specified; Z91.81 History of falling; Z87.440 Personal history of urinary (tract) infections; W18.30XA Fall on same level, unspecified, initial encounter; Y84.6 Urinary catheterization as the cause of abnormal reaction of the patient, or of later complication, without mention of misadventure at the time of the procedure; Y92.009 Unspecified place in unspecified non-institutional (private) residence as the place of occurrence of the external cause
CPT/HCPCS: 36415; 70450; 72125; 80053; 81001; 85025; 87086; 87426; 96365; 99284; G0378; J0696; U0003; G0379; 99285-25

== ENCOUNTER → 2021-11-04 | Outpatient (CLI) | payer MEDICARE ==
[~2021-11-04] MED LIST changes: +ASPI-889 PO; +LORA10TA68 PO; +MELA10TA PO; +TRAM50TA PO; +TRIH2TAB3 PO
--- NOTE | 2021-11-06 14:55 | RAD ---
BILATERAL DIGITAL SCREENING 2-D AND 3-D MAMMOGRAM INDICATION: Routine screening. COMPARISON: July 21, 2018, June 10, 2017 and December 11, 2015 Interpretation was made using CAD. FINDINGS: Breast Density: There are scattered areas of fibroglandular density. RIGHT BREAST: A focal asymmetry is seen on the cc view only in the inner breast, 5 cm from the nipple . Additional imaging is recommended. No suspicious calcifications or areas of distortion are seen. LEFT BREAST: No suspicious masses, calcifications or areas of architectural distortion are seen. IMPRESSION: 1. Indeterminate asymmetry in the right breast. Additional diagnostic imaging is necessary. An ultras ound may also be necessary. 2. Stable left mammogram with no imaging evidence of malignancy. ASSESSMENT: BI-RADS 0. Incomplete assessment. Additional imaging is necessary. RECOMMENDATION: Right diagnostic mammogram. Possible right breast ultrasound. The facility will notify the patient of the results via mail. Patient information will be entered int o the mammography reminder system with a target recall date for the next mammogram. A reminder letter will be generated by the facility. Electronically signed by: Sandra Dietz MD (11/06/2021 2:53 PM) [id number]
== END ==
LOC: MAMMO 11:31
PROVIDERS: ATTEND Family Medicine
DX: Z12.31 Encounter for screening mammogram for malignant neoplasm of breast (principal)
CPT/HCPCS: 77063; 77067

== ENCOUNTER → 2021-12-03 | Outpatient (CLI) | payer MEDICARE ==
--- NOTE | 2021-12-03 11:47 | RAD ---
EXAM: Right breast diagnostic mammogram with tomosynthesis; right breast sonogram. HISTORY: 76-year-old female presents for evaluation of asymmetry within the right breast demonstrated on a screening mammogram dated 11/04/2021. TECHNIQUE: Full-field digital and spot compression 2D and 3D tomosynthesis images of the right breast are obtained for evaluation. Sonographic imaging of the right breast targeted to the site of mammogr aphic asymmetry was also performed. COMPARISON: 11/04/2021 BREAST PARENCHYMAL DENSITY: Level B - Scattered fibroglandular densities. FINDINGS: There is no persistent finding of concern within the right breast with additional mammograp hic views. No suspicious asymmetry, mass, distortion or calcification is seen. Sonographic imaging of the right breast demonstrates no suspicious finding. IMPRESSION: 1. No persistent suspicious mammographic or sonographic finding. 2. BI-RADS Category 2: Benign finding(s). RECOMMENDATION: Annual mammography is recommended. If your mammogram demonstrates that you have dense breast tissue, which could hide abnormalities, and if you have other risk factors for breast cancer that have been identified, you might benefit from s upplemental screening tests that may be suggested by your ordering physician. Dense breast tissue, i n and of itself, is a relatively common condition. This information is not provided to cause undue c oncern, but rather to raise your awareness and to promote discussion with your physician regarding th e presence of other risk factors, in addition to dense breast tissue. A report of your mammography re sults will be sent to you and your physician. You should contact your physician if you have any ques tions or concerns regarding this report. Mammography is a sensitive method for finding small breast cancers, but it does not detect them all a nd is not a substitute for careful clinical examination. A negative mammogram does not negate a clin ically suspicious finding and should not result in delay in biopsying a clinically suspicious abnorma lity. PQRS compliance statement - Patient information was entered into a reminder system with a target due date for the next mammogram. "Our facility is accredited by the [employer] Mammography Program." Electronically signed by: Sandy Haque MD (12/03/2021 11:45 AM) [id number]
== END ==
LOC: MAMMO 10:33
PROVIDERS: ATTEND Family Medicine
DX: R92.8 Other abnormal and inconclusive findings on diagnostic imaging of breast (principal)
CPT/HCPCS: 76642; 77065